=== PATIENT | female | born 1965 | race Caucasian/White ===

== ENCOUNTER 2018-04-10 06:10 | Observation (INO) ==
[2018-04-10] MEDS ORDERED: Chlorhexidine Gluconate 2% 1 Pack (2 Cloths) TOPICAL ONE (06:31)
[2018-04-10] MEDS ORDERED: Metoprolol Tartrate 25 MG Tablet PO ONE (06:31)
[2018-04-10] MEDS ORDERED: SODIUM CHLOR 0.9% IV.SIG SCH (07:00)
[2018-04-10] MEDS ORDERED: Sodium Chlor 0.9% Inj 500 ML IV.SIG SCH (07:00)
[2018-04-10] MEDS ORDERED: CEFAZOLIN IV.SIG SCH (07:00)
[2018-04-10] MEDS ORDERED: ceFAZolin 1 GM Premix Inj 1 GM/50 ML FROZ.PIGGY IV.SIG SCH (07:00)
[2018-04-10] MEDS ORDERED: ceFAZolin 2 GM Premix Inj 2 GM/50 ML PIGGYBACK IV.SIG SCH (07:00)
[2018-04-10] MEDS ORDERED: Estrogens Congugated Vag Cream w/app 30 GM Tube VAGINAL ONE (08:04)
[2018-04-10] MEDS ORDERED: Neostigmine Inj 5 MG/5 ML Syringe IV.PUSH ONE (08:19)
[2018-04-10] MEDS ORDERED: Lidocaine PF 1% Inj 5 ML Syringe OTHER ONE (08:19)
[2018-04-10] MEDS ORDERED: Glycopyrrolate Inj 1 MG/5 ML Syringe IV.PUSH ONE (08:19)
[2018-04-10] MEDS ORDERED: Succinylcholine Inj 100 MG/5 ML Syringe IV.PUSH ONE (08:19)
[2018-04-10] MEDS ORDERED: Bupivacaine/Epinephrine Inj 0.25% 50 ML Vial INFILTRATN STA (09:51)
--- NOTE | 2018-04-10 10:33 | ECG ---
Date Performed: 04/10/2018 Time Performed: 07:14:08 PTAGE: 53 years EKG: Sinus rhythm NORMAL ECG NO PREVIOUS TRACING DOCTOR: Tavares Knott Interpretating Date/Time 04/10/2018 10:29:48
[2018-04-10] MEDS ORDERED: Ibuprofen 600 MG Tablet PO PRN (11:20)
[2018-04-10] MEDS ORDERED: HYDROmorphone PF Inj 1 MG/ML Ampul IV.PUSH PRN (11:20)
[2018-04-10] MEDS ORDERED: Zolpidem Tartrate 5 MG Tablet PO PRN (11:20)
--- NOTE | 2018-04-10 11:26 | P.OP ---
- Preoperative Diagnosis (1) Climacteric menorrhagia (2) Fibroid uterus (3) Pelvic peritoneal adhesions Date of procedure: 04/10/18 Procedure: laparoscopic assisted vaginal hysterectomy bilateral salpingectomy cystoscopy enterolysis Anesthesia: LOWELLA Surgeon: Cristy Easton MD Evp Operations: Yonathan MS3 Estimated blood loss (mL): 300 IV fluids (mL): 2,000 Urine output (mL): 350 Pathology: other (uterus, tubes and cervix)
[2018-04-10] MEDS ORDERED: *Promethazine Inj 25 MG/ML Vial PERIprocedural use ONLY ONE (11:39)
[2018-04-10] MEDS ORDERED: fentaNYL Citrate Inj 100 MCG/2 ML Ampul ONE ×2 (11:41)
--- NOTE | 2018-04-10 12:31 | MP ---
cc: Cristy Easton MD DATE OF OPERATION: 04/10/2018 PREOPERATIVE DIAGNOSIS: 1. Perimenopausal menorrhagia. 2. Uterine fibroids. 3. History of cervical dysplasia. POSTOPERATIVE DIAGNOSES: 1. Perimenopausal menorrhagia. 2. Uterine fibroids. 3. History of cervical dysplasia. 4. Pelvic adhesive disease. PROCEDURE PERFORMED: Cystoscopy. ANESTHESIA: General endotracheal. SURGEON: Cristy Easton MD CLINICAL ASSOC: KAL Mcmanus FINDINGS: Examination under anesthesia revealed a multiparous cervix with mild descent and markedly retroverted uterus. Ovaries were not palpable. There was minimal descent of the bladder or the rectum. Upon entering the peritoneal cavity, the uterus was confirmed to be retroverted, enlarged and quite wide with virtually no round ligament on the right and a shortened round ligament on the left. Both ovaries appeared unremarkable in size and contour and were left as patient preferred. The tubes and the uterus were from their attachments. There was large vessels in the broad ligament and down the anterior lower uterine segment where the bladder was densely adherent to the lower uterine segment. These vessels did result in some bleeding that was rendered hemostatic. The ureters were found to be peristalsing both laparoscopically and then confirmed post-procedure with cystoscopy. The vaginal portion of the case was somewhat difficult due again to scarring of the bladder. ESTIMATED BLOOD LOSS: 350 mL SPONGE, INSTRUMENT, NEEDLE COUNTS: Correct. The patient tolerated the procedure well and went to the recovery room in stable condition DESCRIPTION OF PROCEDURE: The patient had consent reviewed in her holding area, she had decided in the room to leave her ovaries and she has been appraised in detail of the risks, benefits, alternatives of leaving the ovaries versus conducting an oophorectomy. She was taken to the operating room and placed under general endotracheal anesthesia, prepped and draped in the usual sterile fashion in the dorsal lithotomy position. Timeout was performed with all in attendance. Nieto was placed by the offset printing operator. Examination under anesthesia was performed with the above findings. The cervix was grasped with a single-tooth tenaculum and an acorn tenaculum was placed in the os. Nieto was placed and attention was directed to the abdomen. A 5 mm incision was made after instillation of Marcaine with epinephrine. This was in the umbilicus and then a 5 mm trocar and sleeve were placed under direct visualization with care to avoid underlying structures. Pneumoperitoneum was then created and then two other 5 mm trocar and sleeves were placed in the right and left lower quadrants with transillumination to avoid underlying vessels. The trocars were removed and graspers placed and systematic evaluation of the abdominal pelvic contents was performed. Liver edge, gallbladder, appendix were all visualized. Uterus was as above described. The right round ligament was transected with the Harmonic scalpel and the anterior leaf of the broad ligament taken off the lower uterine segment as much as possible. It was densely adherent ____. The tubo-ovarian ligament was placed on tension and pedicles were created with the tube held medially, the tube from the sidewall structures. This was taken down to the round ligament pedicle and then successive pedicles were taken down to the lower uterine segment. Attention was placed to the left side, which was treated in like manner. The bladder was continually sharply dissected off the lower uterine segment with care to make sure that the ureters were pushed inferiorly and laterally to avoid compromise. Very large vessels in the anterior uterine wall were encountered and rendered hemostatic as best possible. Once the dissection was down to the uterosacrals, the abdominal approach was temporarily abandoned and perineal approach then taken. The cervix was grasped with the tenaculum, infiltrated with lidocaine, circumcised with the Bovie on cutting and the posterior cul-de-sac was entered sharply. It was not possible to enter the anterior cul-de-sac due to the scarring. The uterosacrals on either side were clamped, cut, suture ligated intact and successive pedicles were clamped, cut, and suture ligated. Sycamore through this portion of the case, it was possible to enter into the peritoneal cavity anterior and then pedicles were taken until the uterus was removed from the vaginal cuff without difficulty and continued to the tube os. There was brisk bleeding from a vessel on the patient's right that was the aberrant vessel going to the anterior bladder. We could not render this hemostatic vaginally so the cuff was closed after the uterosacrals were plicated and attention was redirected up to above where the pneumoperitoneum was reinstilled, the bleeder identified and rendered hemostatic with the Kleppingers. Systematic evaluation revealed all peritoneal edges to be hemostatic. Copious pelvic lavage was performed. Arixtra was placed on the peritoneal edges. Pneumoperitoneum was released under direct visualization. The suction aerial applicator pilot was used to fill the bladder with 200 mL of sterile saline and then the Nieto was removed. The scope was placed into the bladder and there was no evidence of iatrogenic injury or intrinsic pathology and there was ureteral flow from both orifices. The catheter was temporarily replaced. She was placed in dorsal supine position, awoken and taken to the recovery room in stable condition. Cristy Easton MD PPC/ct/ll , 11:34 AM , 11:50 AM
[2018-04-10] MEDS: Docusate Sodium 100 MG Capsule PO SCH ×2 (21:32→21:33)
[2018-04-11 05:51] VITALS: RESP 18
[2018-04-11 06:00] LABS: Baso % (Auto) 0.1 % (0.0-2.0); Hematocrit 37.6 % (35.0-46.0); Hemoglobin 12.8 gm/dL (11.6-15.3); Lymph # (Auto) 0.8 th/mm3 (1.0-4.8); Mean Corpuscular Hemoglobin 31.3 pg (27.0-34.0); Mean Corpuscular Volume 92.2 fL (80.0-100.0); Mono % (Auto) 6.7 % (0.0-8.0); Neut # (Auto) 13.8 th/mm3 (1.8-7.7); Neut % (Auto) 88.2 % (16.0-70.0); Platelet Count 211 th/mm3 (150-450); Red Blood Count 4.08 mil/mm3 (4.00-5.30); Red Cell Distribution Width 13.4 % (11.6-17.2); White Blood Count 15.6 th/mm3 (4.0-11.0)
[2018-04-11 06:21] LABS: Anion Gap 7 meq/L (5-15); Blood Urea Nitrogen 7 mg/dL (7-18); Calcium 7.9 mg/dL (8.5-10.1); Carbon Dioxide 25.8 meq/L (21.0-32.0); Chloride 108 meq/L (98-107); Glomerular Filtration Rate Greater Than 89 mL/min (>89); Glucose,Random 112 mg/dL (74-106); Potassium 3.6 meq/L (3.5-5.1); Sodium 141 meq/L (136-145)
--- NOTE | 2018-04-11 08:34 | P.PNOB ---
Assessment and Plan - Postoperative Procedures Operation Date: 04/10/18 08:30 Actual Procedures Side Surgeon p LAPAROSCOPIC ASSISTED VAGINAL HYSTERECTOMY, BILATERAL SALPINGECTOMY, CYSTOSCOPY Cristy Easton MD Postoperative day: 1 Postoperative status: doing well Postoperative plan: routine post-op care - Time Spent With Patient Total time spent is greater than 50% in coordination of care (as documented) at patient's floor/unit and/or counseling patient: less than 15 minutes (counseled and RTO 1 week) Subjective Interval history: Doing well mild discomfort urinary frequency voiding now Subjective: pain is well controlled, patient is tolerating oral intake Physical Exam Vital signs: Temp Pulse Resp BP Pulse Ox 98.3 F 61 18 121/77 95 04/11/18 04:00 04/11/18 04:00 04/11/18 04:00 04/11/18 04:00 04/11/18 04:00 - Constitutional no acute distress - Routine Respiratory Exam Present: CTA bilaterally - Routine Abdominal Exam Present: soft Comments: incisions clean and dry - Routine Exam Comments: perineium dry has no packing or premarin - Urinary Catheter Management Indwelling Urethral Catheter Cath placed during this visit: yes, but has since been removed by the nurse Urethral indwelling: No Insertion date: 04/10/18 Insertion time: 09:02 Removal date: 04/11/18 Removal time: 05:10 Results - Labs CBC & Chem 7: 04/11/18 05:00 04/11/18 05:00 Labs: Laboratory Results - last 24 hr 04/11/18 04/11/18 05:00 05:00 WBC 15.6 H RBC 4.08 Hgb 12.8 Hct 37.6 MCV 92.2 MCH 31.3 MCHC 34.0 RDW 13.4 Plt Count 211 MPV 9.0 Neut % (Auto) 88.2 H Lymph % (Auto) 5.0 L Lander % (Auto) 6.7 Eos % (Auto) 0.0 Baso % (Auto) 0.1 Neut # (Auto) 13.8 H Lymph # (Auto) 0.8 L Lander # (Auto) 1.0 H Eos # (Auto) 0.0 Baso # (Auto) 0.0 WBC Differential . Differential Comment Auto diff final Sodium 141 Potassium 3.6 Chloride 108 H Carbon Dioxide 25.8 Anion Gap 7 BUN 7 Creatinine 0.66 Estimated GFR Greater than 89 Random Glucose 112 H Calcium 7.9 L
[2018-04-11] MEDS: Docusate Sodium 100 MG Capsule PO SCH (08:43)
[2018-04-11 09:03] VITALS: BP 140/82; PULSE 88; TEMP 98.4; O2SAT 98
[2018-04-11] MEDS ORDERED: ceFAZolin 1 GM Premix Inj 1 GM/50 ML IV.SIG ONE (10:30)
[2018-04-11] MEDS ORDERED: CEFAZOLIN IV.SIG ONE (11:00)
[2018-04-11] MEDS ORDERED: SODIUM CHLOR 0.9% IV.SIG ONE (11:00)
== END 2018-04-11 11:43 | disposition home or self-care (01) ==
LOC: HSDC 06:10 → H1EA 06:10
PROVIDERS: ADMIT Obstetrics & Gynecology; ATTEND Obstetrics & Gynecology